=== PATIENT | male | born 1975 | race African-American/Black ===

== ENCOUNTER 2019-12-29 19:37 | Emergency (ER) | payer MEDICAID ==
[~2019-12-29] VITALS: Ht 182.9 cm; Wt 82.0 kg
[2019-12-29] MEDS: HALOPERIDOL LACTATE 5MG/ML VIAL IM ONE (20:56)
[2019-12-29] MEDS: OLANZAPINE 10 MG/VIAL IM STA (20:56)
[2019-12-29 22:56] LABS: BASOPHILS % 0.7 % (0.0-2.0); EOSINOPHILS % 0.3 % (0.0-5.0); HEMATOCRIT. 43.7 % (42.0-52.0); HEMOGLOBIN. 14.5 g/dL (14.0-18.0); MEAN PLATELET VOLUME 8.4 fl (7.4-10.4); MONOCYTES % 3.2 % (2.0-8.0); NEUTROPHILS % 83.8 % (40.0-76.0); PLATELET 139 x1000/uL (130-400); RED BLOOD CELL COUNT 5.02 mill/uL (4.7-6.1); RED CELL DISTRIBUTION WIDTH 14.4 % (11.6-14.6)
[2019-12-29 23:01] LABS: CHLORIDE 114 mEq/L (98-107)
[2019-12-29 23:06] LABS: ETHANOL BLOOD 129 mg/dL
[2019-12-30 06:21] VITALS: BP 110/75
[2019-12-30 06:41] LABS: CLARITY URINE CLEAR (CLEAR); COLOR URINE YELLOW (YELLOW); KETONES URINE NEGATIVE (NEGATIVE); LEUKOCYTE ESTERASE URINE NEGATIVE (NEGATIVE); NITRITE URINE NEGATIVE (NEGATIVE); OCCULT BLOOD URINE NEGATIVE (NEGATIVE); PROTEIN URINE TRACE (NEGATIVE); SPECIFIC GRAVITY URINE 1.018 (1.005-1.030); UROBILINOGEN URINE 0.2 E.U./dL (0.2-1.0)
[2019-12-30 06:57] LABS: *AMPHETAMINES SCREEN URINE NEGATIVE (NEGATIVE); *BARBITURATES SCREEN URINE NEGATIVE (NEGATIVE); *BENZODIAZEPINES SCREEN URINE PRESUMTIVE POSITIVE (NEGATIVE); *COCAINE SCREEN URINE PRESUMTIVE POSITIVE (NEGATIVE); METHADONE URINE SCREEN NEGATIVE (NEGATIVE); OPIATES URINE SCREEN NEGATIVE (NEGATIVE)
[2019-12-30 06:58] LABS: CANNABINOID URINE SCREEN NEGATIVE (NEGATIVE); PHENCYCLIDINE URINE SCREEN PRESUMTIVE POSITIVE (NEGATIVE)
== END 2019-12-30 06:53 | disposition home or self-care (01) ==
LOC: ER 19:37 → EDBD 19:37 → ER 12-30 06:53
DX: F16.10 Hallucinogen abuse, uncomplicated (principal); I49.9 Cardiac arrhythmia, unspecified; F17.290 Nicotine dependence, other tobacco product, uncomplicated; Z78.1 Physical restraint status
CPT/HCPCS: 36415; 80053; 80305; 80320; 81003; 82962; 85025; 93005; 96372; 99285; 99406; J1630; J3490; G0480